=== PATIENT | female | born 2000 | race Caucasian/White ===

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

== ENCOUNTER 2020-07-16 22:53 | Emergency (ER) | payer BC ==
[~2020-07-16] VITALS: Ht 165.1 cm; Wt 86.4 kg
[2020-07-16 23:16] VITALS: TEMP 97.3
[2020-07-17 00:02] LABS: STREP SCREEN NEGATIVE
[2020-07-17 00:59] VITALS: BP 132/78; PULSE 85
[2020-07-17] MEDS ORDERED: PREDNISONE20 MG PO (13:11)
[2020-07-17] MEDS ORDERED: ZITHROMAX Z PA250 MG PO (13:11)
[2020-07-17] MEDS ORDERED: CHERATUSSIN AC120 ML PO (13:11)
== END 2020-07-17 00:59 | disposition home or self-care (01) ==
LOC: COL.ER 22:53
PROVIDERS: Nurse Practitioner
DX: J06.9 Acute upper respiratory infection, unspecified (principal); F17.290 Nicotine dependence, other tobacco product, uncomplicated; Z20.822 Contact with and (suspected) exposure to COVID-19

== ENCOUNTER 2020-07-17 12:40 | Emergency (ER) | payer BC ==
[~2020-07-17] VITALS: Ht 152.4 cm; Wt 86.4 kg
[2020-07-17 12:48] VITALS: BP 132/89; TEMP 97
[2020-07-17] MEDS ORDERED: CHERATUSSIN AC120 ML PO (13:11)
[2020-07-17] MEDS ORDERED: PREDNISONE20 MG PO (13:11)
[2020-07-17] MEDS ORDERED: ZITHROMAX Z PA250 MG PO (13:11)
[2020-07-17 14:00] VITALS: PULSE 75
== END 2020-07-17 14:05 | disposition home or self-care (01) ==
LOC: COL.ER 12:40
DX: J20.9 Acute bronchitis, unspecified (principal); J06.9 Acute upper respiratory infection, unspecified; F17.290 Nicotine dependence, other tobacco product, uncomplicated
CPT/HCPCS: J1100

== ENCOUNTER 2020-12-02 23:12 | Emergency (ER) | payer BC ==
[~2020-12-02] VITALS: Ht 152.4 cm; Wt 81.8 kg
[~2020-12-02 23:12] MED LIST: CHERATUSSIN AC120 ML PO; PREDNISONE20 MG PO; ZITHROMAX Z PA250 MG PO
[2020-12-02 23:34] VITALS: TEMP 98.2
[2020-12-03 01:07] VITALS: BP 114/70; PULSE 78
== END 2020-12-03 01:07 | disposition home or self-care (01) ==
LOC: COL.ER 23:12
DX: S06.0X0A Concussion without loss of consciousness, initial encounter (principal); S00.81XA Abrasion of other part of head, initial encounter; W01.198A Fall on same level from slipping, tripping and stumbling with subsequent striking against other object, initial encounter

== ENCOUNTER 2022-01-04 14:18 | Emergency (ER) | payer BC ==
[~2022-01-04] VITALS: Ht 152.4 cm; Wt 86.4 kg
[2022-01-04 14:40] VITALS: BP 122/87; TEMP 98.3
[2022-01-04 17:17] VITALS: PULSE 94
== END 2022-01-04 17:21 | disposition home or self-care (01) ==
LOC: COL.ER 14:18
DX: S43.401A Unspecified sprain of right shoulder joint, initial encounter (principal); S09.90XA Unspecified injury of head, initial encounter; W17.89XA Other fall from one level to another, initial encounter; W22.8XXA Striking against or struck by other objects, initial encounter